=== PATIENT | female | born 1945 | race Two or more races ===

== ENCOUNTER 2018-08-03 09:58 | Outpatient (CLI) | payer OTHER ==
[~2018-08-03 09:58] MED LIST: COZAAR100 MG PO; OMEPRAZOLE20 MG PO; PERCOCET 5-3251 EACH PO; SYNTHROID88 MCG PO
== END 2018-08-03 10:48 | disposition home or self-care (01) ==
LOC: LAB 09:58
DX: E03.8 Other specified hypothyroidism (principal); D50.0 Iron deficiency anemia secondary to blood loss (chronic); D51.3 Other dietary vitamin B12 deficiency anemia; D50.8 Other iron deficiency anemias; D51.8 Other vitamin B12 deficiency anemias; D51.1 Vitamin B12 deficiency anemia due to selective vitamin B12 malabsorption with proteinuria; D55.0 Anemia due to glucose-6-phosphate dehydrogenase [G6PD] deficiency; E06.3 Autoimmune thyroiditis; R97.0 Elevated carcinoembryonic antigen [CEA]; R97.8 Other abnormal tumor markers